=== PATIENT | female | born 1980 | race Caucasian/White ===

== ENCOUNTER 2021-02-27 15:10 | Emergency (ER) | payer BC ==
[2021-02-27] MEDS ORDERED: Bacitracin Oint 1 GM U/D Packet TOP ONE (16:07)
[2021-02-27] MEDS ORDERED: Diphtheria,Pertussis(Acell),Tetanus Vaccine 0.5 ML Syringe IM ONE (16:07)
[2021-02-27] MEDS ORDERED: Lidocaine 1% with EPINEPHrine 1:100,000 50 ML MDV SUBCUT STA (16:07)
--- NOTE | 2021-02-27 16:12 | EDM.PDOC ---
ED HPI GENERAL MEDICAL PROBLEM - General Chief Complaint: Laceration Stated Complaint: SLIPPED AT [facility] Time Seen by Provider: 02/27/21 16:00 Source of Information: Reports: Patient, RN History Limitations: Reports: No Limitations - History of Present Illness INITIAL COMMENTS - FREE TEXT/NARRATIVE: 40 yo female slipped in a step and fell striking her anterior R randle on the step incurring a V shaped flap laceration. Here for eval and tx. Onset: Today, Sudden Onset Date: 02/27/21 Duration: Minutes:, Constant Location: Reports: Lower Extremity, Right Quality: Reports: Dull Severity: Mild Improves with: Reports: None Worsens with: Reports: Other (touching wound) Context: Reports: Trauma Associated Symptoms: Reports: No Other Symptoms Treatments MATERIAL SCHEDULER: Reports: Other (see below) (none) Right Lower Leg Pain Score (Numeric/FACES): 2 - Related Data Allergies Allergy/AdvReac Type Severity Reaction Status Date / Time No Known Allergies Allergy Verified 02/27/21 15:48 Home Meds: Home Meds Apixaban [Eliquis] 5 mg PO BID 02/27/21 [History] Escitalopram [Lexapro] 10 mg PO DAILY 02/27/21 [History] Past Medical History HEENT History: Reports: Impaired Vision Cardiovascular History: Reports: Blood Clots/VTE/DVT Respiratory History: Reports: [employer] DOUBLE END History: Reports: Psychiatric History: Reports: Depression - Past Surgical History HEENT Surgical History: Reports: Other (See Below) Other HEENT Surgeries/Procedures: tear duct surgery as an Social & Family History - Tobacco Use Tobacco Use Status *Q: Never Tobacco User - Caffeine Use Caffeine Use: Reports: Soda - Alcohol Use Days Per Week of Alcohol Use: 7 Number of Drinks Per Day: 3 Total Drinks Per Week: 21 - Recreational Drug Use Recreational Drug Use: No ED ROS GENERAL - Review of Systems Review Of Systems: See Below Constitutional: Reports: No Symptoms Musculoskeletal: Reports: No Symptoms Skin: Reports: Wound (R randle lac) Neurological: Reports: No Symptoms ED EXAM, SKIN/RASH Exam: See Below Exam Limited By: No Limitations General Appearance: Alert, WD/WN, No Apparent Distress Extremities: Other (wound R anterior randle) ED SKIN PROCEDURES - Laceration/Wound Repair Right Anterior Leg Appearance: Subcutaneous, Irregular (V shaped), Mildly Contaminated Distal NVT: Neuro & Vascular Intact, No Tendon Injury Anesthetic Type: Local Local Anesthesia - Lidocaine (Xylocaine): 1% with EPI Local Anesthetic Volume: 5cc Skin Prep: Saline Saline Irrigation (cc's): 60 Exploration/Debridement/Repair: Wound Explored, Explored to Base Closed with: Sutures Lac/Wound length In cm: 3 Suture Size: 5-0 # of Sutures: 8 Suture Type: Nylon, Interrupted, Simple Drain Placement: No Sterile Dressing Applied: Nurse Tetanus Status Addressed: Yes Complications: No Course - Vital Signs Last Recorded V/S: Last Vital Signs Temp 36.4 C 02/27/21 15:46 Pulse 76 02/27/21 15:46 Resp 16 02/27/21 15:46 BP 116/79 02/27/21 15:46 Pulse Ox 98 02/27/21 15:46 - Orders/Labs/Meds Orders: Active Orders 24 hr Category Date Time Status Vaccines to be Administered [RC] PER UNIT ROUTINE Care 02/27/21 16:07 Active Meds: Medications Discontinued Medications Generic Name Dose Route Start Last Admin Trade Name Bro PRN Reason Stop Dose Admin Bacitracin 1 dose 02/27/21 16:07 02/27/21 16:27 Bacitracin Oint 1 Gm U/D Packet TOP 02/27/21 16:08 1 dose ONETIME ONE Administration Diphtheria/Tetanus/Acell Pertussis 0.5 ml 02/27/21 16:07 02/27/21 16:28 Diphtheria,Pertussis(Acell),Tetanus Vaccine 0.5 Ml Syringe IM 02/27/21 16:08 0.5 ml .ONCE ONE Administration Lidocaine/Epinephrine 6 ml 02/27/21 16:07 02/27/21 16:29 Lidocaine 1% With Epinephrine 1:100,000 50 Ml Mdv SUBCUT 02/27/21 16:08 6 ml NOW STA Administration Departure - Departure Time of Disposition: 16:55 Disposition: Home, Self-Care 01 Condition: Good Clinical Impression: Laceration of right leg excluding thigh Qualifiers: Encounter type: initial encounter Qualified Code(s): S81.811A - Laceration without foreign body, right lower leg, initial encounter - Discharge Information *PRESCRIPTION DRUG MONITORING PROGRAM REVIEWED*: Not Applicable *COPY OF PRESCRIPTION DRUG MONITORING REPORT IN PATIENT MIKHAIL: Not Applicable Instructions: Laceration Care, Adult, [id number] Referrals: PCP,None [Primary Care Provider] - Forms: ED Department Discharge Additional Instructions: Clean wound twice daily with soap and water. Dry. Apply antibiotic ointment and a new dressing. Stitches out in 9 days. Recheck for signs of infection. Keep wound clean for at least 3 days, and out of the sun for 6 mos. Acetaminophen for pain relief. Sepsis Event Note (ED) - Evaluation Sepsis Screening Result: No Definite Risk - Focused Exam Vital Signs: Vital Signs Temp Pulse Resp BP Pulse Ox 02/27/21 15:46 36.4 C 76 16 116/79 98 - My Orders Last 24 Hours: My Active Orders 02/27/21 16:07 Vaccines to be Administered [RC] PER UNIT ROUTINE - Assessment/Plan Last 24 Hours: My Active Orders 02/27/21 16:07 Vaccines to be Administered [RC] PER UNIT ROUTINE
== END 2021-02-27 17:14 | disposition home or self-care (01) ==
LOC: JP.ED 15:10
DX: S81.811A Laceration without foreign body, right lower leg, initial encounter (principal); Z23 Encounter for immunization; Z86.718 Personal history of other venous thrombosis and embolism; Z79.01 Long term (current) use of anticoagulants; W01.198A Fall on same level from slipping, tripping and stumbling with subsequent striking against other object, initial encounter; W26.8XXA Contact with other sharp object(s), not elsewhere classified, initial encounter
CPT/HCPCS: 12002; 90471; 90715; 96372; 99282; 99282-25